=== PATIENT | female | born 1950 ===

== ENCOUNTER 2025-01-01 10:01 | Outpatient (CLI) | payer MEDICARE | END 2025-01-01 17:00 | disposition home or self-care (01) | LOC: Rad HDHVI 10:01 | PROVIDERS: ATTEND Internal Medicine Cardiovascular Disease | DX: I11.9 Hypertensive heart disease without heart failure (principal) | CPT/HCPCS: 93306 ==

== ENCOUNTER 2025-03-10 14:11 | Outpatient (CLI) | payer MEDICARE | END 2025-03-10 17:00 | disposition home or self-care (01) | LOC: Rad HDHVI 14:11 | PROVIDERS: ATTEND Internal Medicine Cardiovascular Disease | DX: I10 Essential (primary) hypertension (principal); R60.0 Localized edema | CPT/HCPCS: 93880; 93970 ==